=== PATIENT | female | born 1935 | race Caucasian/White ===

== ENCOUNTER 2020-08-14 15:19 | Inpatient (IN) | payer OTHER ==
[2020-08-14 16:13] LABS: Absolute Lymphocytes (CBC) 1.6 K/uL (0.7-4.9); Basophils % 1.2 % (0-1.3); Hematocrit 32.6 % (36.0-45.0); Lymphocytes % 27.4 % (15.3-44.8); MPV 7.9 fL (7.6-11.3); RBC Red Blood Cell Count 3.57 M/uL (3.86-4.86)
[2020-08-14 16:16] LABS: Protime INR 1.14
[2020-08-14 16:28] LABS: ALT/SGPT 16 U/L (12-78); AST/SGOT 15 U/L (15-37); Albumin 2.8 g/dL (3.4-5.0); Alkaline Phosphatase 100 U/L (45-117); BUN Blood Urea Nitrogen 10 mg/dL (7-18); Bicarbonate 30 mmol/L (21-32); Bilirubin Direct 0.2 mg/dL (0-0.2); Bilirubin Total 0.6 mg/dL (0.2-1.0); Glucose Level 96 mg/dL (74-106); Magnesium 2.4 mg/dL (1.8-2.4); Potassium 3.6 mmol/L (3.5-5.1); Protein, Total 7.6 g/dL (6.4-8.2); Sodium Level 137 mmol/L (136-145); Troponin (Emerg Dept Use Only) < 0.02 ng/mL (0.0-0.045)
--- NOTE | 2020-08-14 16:28 | RAD REPORT ---
EXAM DESCRIPTION: RAD - Chest Single View - 08/14/2020 4:15 pm CLINICAL HISTORY: left leg swelling Chest pain. COMPARISON: No comparisons FINDINGS: Portable technique limits examination quality. The lungs are grossly clear. The heart is normal in size. No displaced fractures. IMPRESSION: No acute intrathoracic process suspected.
--- NOTE | 2020-08-14 16:46 | EDPHYS ---
Physician Documentation [facility] Name: Loni Braga Age: 84 yrs Sex: Female : 1935 Arrival Date: 08/14/2020 Time: 15:21 Bed 14 Private MD: ED Physician Kyler Ashley HPI: 08/14 15:40 This 84 yrs old Female presents to ER via Wheelchair with complaints of Blood cp Clot in Leg. 15:40 The patient presents with pain, that is acute, swelling, tenderness. cp 15:40 The complaints affect the left leg. Patient reports having US of left leg today done by cp radiology of [facility] that showed DVT. Historical: - Allergies: 15:35 Codeine; ll1 15:35 Morphine; ll1 - PMHx: 15:35 Glaucoma; left foot fx; ll1 - Immunization history:: Flu vaccine status is unknown. - Social history:: Smoking status: Patient denies any tobacco usage or history of. ROS: 15:45 Constitutional: Negative for body aches, chills, fever, poor PO intake. cp 15:45 Eyes: Negative for injury, pain, redness, and discharge. cp 15:45 MS/extremity: Positive for pain, swelling, tenderness, of the left leg, Negative for cp decreased range of motion. 15:45 Cardiovascular: Negative for chest pain, palpitations. cp 15:45 Respiratory: Negative for cough, shortness of breath, wheezing. 15:45 Abdomen/GI: Negative for abdominal pain, nausea, vomiting, and diarrhea. 15:45 Neuro: Negative for altered mental status, headache, syncope, weakness. 15:45 All other systems are negative. Exam: 15:50 Constitutional: The patient appears in no acute distress, alert, awake, cp non-diaphoretic, non-toxic, well developed, well nourished. 15:50 Head/Face: Normocephalic, atraumatic. cp 15:50 Eyes: Periorbital structures: appear normal, Conjunctiva: normal, no exudate, no injection, Lids and lashes: appear normal, bilaterally. 15:50 Chest/axilla: Inspection: normal, Palpation: is normal, no crepitus, no tenderness. 15:50 Cardiovascular: Rate: normal, Rhythm: regular, JVD: is not appreciated. 15:50 Respiratory: the patient does not display signs of respiratory distress, Respirations: normal, no use of accessory muscles, no retractions, labored breathing, is not present, Breath sounds: are clear throughout, no decreased breath sounds. 15:50 Abdomen/GI: Inspection: abdomen appears normal, Palpation: abdomen is soft and non-tender, in all quadrants. 15:50 Musculoskeletal/extremity: Extremities: grossly normal except: noted in the left leg: swelling, tenderness, Perfusion: the extremity is normally perfused throughout, the left leg Sensation intact. DVT Exam: no erythema, no increased warmth, pain, that is mild, of the left leg, swelling, that is moderate, of the left leg, tenderness, that is mild, of the left leg. 15:50 Skin: no rash present. 16:09 ECG was reviewed by the Attending Physician. cp Vital Signs: 15:34 BP 137 / 92; Pulse 72; Resp 17; Temp 97.5; Pulse Ox 98% ; Pain 3/10; ll1 16:15 BP 117 / 62; Pulse 67; Resp 15; Pulse Ox 100% on R/A; sv 16:46 Weight 54.43 kg; sv MDM: 15:29 Patient medically screened. cp 16:00 Differential diagnosis: cellulitis, DVT, dependent edema. cp 16:42 Data reviewed: vital signs, nurses notes, lab test result(s), EKG, radiologic studies, cp plain films, ultrasound, I have discussed the patient's presentation/case with the attending Emergency Department Physician; and as a result, I will admit patient. Physician consultation: Dorina Victoria MD was called at 16:44, was contacted at 16:44, regarding admission, to the telemetry unit. 08/14 15:36 Order name: Basic Metabolic Panel; Complete Time: 16:39 cp 08/14 15:36 Order name: CBC with Diff; Complete Time: 16:39 cp 08/14 15:36 Order name: LFT's; Complete Time: 16:39 cp 08/14 15:36 Order name: Magnesium; Complete Time: 16:39 cp 08/14 15:36 Order name: PT-INR; Complete Time: 16:39 cp 08/14 15:36 Order name: Troponin (emerg Dept Use Only); Complete Time: 16:39 cp 08/14 17:24 Order name: CBC with Automated Diff EDMS 08/14 17:24 Order name: CBC with Automated Diff EDMS 08/14 17:24 Order name: Comprehensive Metabolic Panel EDMS 08/14 17:24 Order name: Comprehensive Metabolic Panel EDMS 08/14 17:24 Order name: Protime (+INR) EDMS 08/14 17:24 Order name: Protime (+INR) EDMS 08/14 17:24 Order name: PTT, Activated Partial Thromb EDMS 08/14 17:24 Order name: PTT, Activated Partial Thromb EDMS 08/14 15:36 Order name: XRAY Chest (1 view); Complete Time: 16:39 cp 08/14 15:36 Order name: EKG; Complete Time: 15:37 cp 08/14 15:36 Order name: Cardiac monitoring; Complete Time: 16:05 cp 08/14 15:36 Order name: EKG - Nurse/Tech; Complete Time: 16:05 cp 08/14 15:36 Order name: IV Saline Lock; Complete Time: 16:09 cp 08/14 15:36 Order name: Labs collected and sent; Complete Time: 16:09 cp 08/14 15:36 Order name: O2 Per Protocol; Complete Time: 16:09 cp 08/14 15:36 Order name: O2 Sat Monitoring; Complete Time: 16:09 cp 08/14 17:11 Order name: Diet Regular; Complete Time: 17:11 sv 08/14 17:24 Order name: CONS Pharmacy Consult EDMS EC:09 Rate is 68 beats/min. Rhythm is regular. WI interval is normal. QRS interval is normal. cp QT interval is normal. T waves are Inverted in lead aVR. Interpreted by me. Reviewed by me. Administered Medications: 17:12 Drug: Lovenox 1 mg/kg Route: Sub-Q; Site: right lower abdomen; sv 17:42 Follow up: Response: No adverse reaction sv Disposition: 08/15 08:04 Co-signature as Attending Physician, Kyler Ashley MD. rn Disposition: 08/14/20 16:45 Hospitalization ordered by Dorina Victoria for Inpatient Admission. Preliminary diagnosis is Acute embolism and thrombosis of deep veins of left upper extremity. - Bed requested for Telemetry/MedSurg (Inpatient). - Status is Inpatient Admission. sg - Condition is Stable. - Problem is new. - Symptoms have improved. Signatures: Dispatcher [employer] EDMS Dirrim, Thelma Freda Rodas, RN RN sv Dony Lauren RN RN sg Kyler Ashley MD MD rn Page, Corey, PA PA cp Lewis, Lynsay, RN RN ll1 Corrections: (The following items were deleted from the chart) 08/14 18:11 16:45 Hospitalization Ordered by Dorina Victoria MD for Inpatient Admission. Preliminary bd diagnosis is Acute embolism and thrombosis of deep veins of left upper extremity. Bed requested for Telemetry/MedSurg (Inpatient). Status is Inpatient Admission. Condition is Stable. Problem is new. Symptoms have improved. cp 19:44 18:11 08/14/2020 16:45 Hospitalization Ordered by Dorina Victoria MD for Inpatient sg Admission. Preliminary diagnosis is Acute embolism and thrombosis of deep veins of left upper extremity. Bed requested for Telemetry/MedSurg (Inpatient). Status is Inpatient Admission. Condition is Stable. Problem is new. Symptoms have improved. bd
--- NOTE | 2020-08-14 16:46 | ER ---
Nurse's Notes [facility] Name: Loni Braga Age: 84 yrs Sex: Female : 1935 Arrival Date: 08/14/2020 Time: 15:21 Bed 14 Private MD: Diagnosis: Acute embolism and thrombosis of deep veins of left upper extremity Presentation: 08/14 15:34 Chief complaint: Patient states: Sent over after outpatient ultrasound. LLE blood clot ll1 found. No SOB or CP. Coronavirus screen: Client denies travel out of the [place] in the last 14 days. At this time, the client does not indicate any symptoms associated with coronavirus-19. Ebola Screen: Patient denies travel to an Ebola-affected area in the 21 days before illness onset. Initial Sepsis Screen: Does the patient meet any 2 criteria? No. Patient's initial sepsis screen is negative. Risk Assessment: Do you want to hurt yourself or someone else? Patient reports no desire to harm self or others. Onset of symptoms was August 08, 2020. 15:34 Method Of Arrival: Wheelchair ll1 15:34 Acuity: PRISCILLA 3 ll1 16:05 Initial Sepsis Screen: Does the patient have a suspected source of infection? No. sv Patient's initial sepsis screen is negative. Historical: - Allergies: 15:35 Codeine; ll1 15:35 Morphine; ll1 - PMHx: 15:35 Glaucoma; left foot fx; ll1 - Immunization history:: Flu vaccine status is unknown. - Social history:: Smoking status: Patient denies any tobacco usage or history of. Screenin:35 Abuse screen: Denies threats or abuse. Denies injuries from another. Nutritional sv screening: No deficits noted. Tuberculosis screening: No symptoms or risk factors identified. 15:40 Fall Risk None identified. sv Assessment: 15:40 General: Appears in no apparent distress. comfortable, slender, Behavior is calm, sv cooperative, appropriate for age. Pain: Complains of pain in left leg Pain currently is 3 out of 10 on a pain scale. Neuro: Level of Consciousness is awake, alert, obeys commands, Oriented to person, place, time, situation, Moves all extremities. Full function. Respiratory: Airway is patent Respiratory effort is even, unlabored, Respiratory pattern is regular, symmetrical, Denies shortness of breath. Derm: Skin is thin, with poor turgor Skin is normal. Musculoskeletal: Range of motion: intact in all extremities, Pt has a walking boot on her left foot, pt has a fracture to the left foot that occurred about 6 weeks ago. Reports increasing swelling to the left foot. 17:00 Reassessment: Patient appears in no apparent distress at this time. No changes from sv previously documented assessment. Patient and/or family updated on plan of care and expected duration. Pain level reassessed. Patient is alert, oriented x 3, equal unlabored respirations, skin warm/dry/pink. 18:00 Reassessment: Patient appears in no apparent distress at this time. No changes from sv previously documented assessment. Patient and/or family updated on plan of care and expected duration. Pain level reassessed. Patient is alert, oriented x 3, equal unlabored respirations, skin warm/dry/pink. 18:22 Reassessment: Attempted to call report, pt to go up after shift change. sv 19:08 Reassessment: awaiting to give report at this time, pt family at bedside at this time. sg Vital Signs: 15:34 BP 137 / 92; Pulse 72; Resp 17; Temp 97.5; Pulse Ox 98% ; Pain 3/10; ll1 16:15 BP 117 / 62; Pulse 67; Resp 15; Pulse Ox 100% on R/A; sv 16:46 Weight 54.43 kg; sv ED Course: 15:21 Patient arrived in ED. ds1 15:27 Randy Mera PA is PHCP. cp 15:27 Kyler Ashley MD is Attending Physician. cp 15:30 Freda Arguelles, BRAD is Primary Nurse. sv 15:34 Arm band placed on. sv 15:35 Triage completed. ll1 15:35 Patient has correct armband on for positive identification. Bed in low position. Call sv light in reach. Side rails up X2. Adult w/ patient. 15:45 Missed attempt(s): 22 gauge in right forearm. Bleeding controlled, band aid applied, sv catheter tip intact. 15:50 Inserted saline lock: 20 gauge in left antecubital area, using aseptic technique. Blood sv collected. Flushed left antecubital with 5 ml normal saline. 16:05 EKG done, by ED staff, reviewed by Randy MCDOWELL. dh3 16:05 X-ray(s) taken. sv 16:14 XRAY Chest (1 view) Sent. sv 16:15 XRAY Chest (1 view) In Process Unspecified. EDMS 16:18 Awaiting lab results, Awaiting radiology results. sv 16:44 Dorina Victoria MD is Hospitalizing Provider. cp 19:00 Primary Nurse role handed off by Freda Arguelles RN 19:00 Report given to Dony SALINAS. sv 19:06 Dony Lauren, BRAD is Primary Nurse. sg Administered Medications: 17:12 Drug: Lovenox 1 mg/kg Route: Sub-Q; Site: right lower abdomen; sv 17:42 Follow up: Response: No adverse reaction sv Outcome: 16:45 Decision to Hospitalize by Provider. cp 19:44 Admitted to Med/surg accompanied by nurse, via stretcher, room 408, with chart, Report sg called to BRAD Goodson 19:44 Condition: stable 19:44 Instructed on the need for admit, safety practices, Demonstrated understanding of instructions. 19:44 Patient left the ED. sg Signatures: Dispatcher [employer] EDAK Freda Arguelles RN RN Dony Lauren, BRAD RN Miroslava Stevens ds1 Randy Mera PA PA Damaris Ambriz [facility] [place] RN RN ll1 Corrections: (The following items were deleted from the chart) 16:15 13:50 Inserted saline lock: 20 gauge in left antecubital area, using aseptic technique. sv Blood collected. Flushed left antecubital with 5 ml normal saline sv 16:15 13:45 Missed attempt(s): 22 gauge in right forearm. Bleeding controlled, band aid sv applied, catheter tip intact. sv 16:18 15:40 Musculoskeletal: Range of motion: intact in all extremities, Pt has a walking sv boot on her left foot, pt has a fracture to the left foot that occurred about 6 weeks ago. sv
[2020-08-14] MEDS ORDERED: ENOXAPARIN 60 MG/0.6 ML SQ ONE (17:08)
[2020-08-14] MEDS ORDERED: MORPHINE 2 MG/ML SYR IV PRN (17:20)
[2020-08-14] MEDS ORDERED: ACETAMINOPHEN 500 MG TAB PO PRN (17:20)
[2020-08-14] MEDS ORDERED: ONDANSETRON 4 MG/2 ML VIAL IV PRN (17:20)
[2020-08-14] MEDS: NA CHLORIDE 0.9% 1,000 ML IV SCH (20:44)
[2020-08-14] MEDS ORDERED: ENOXAPARIN 60 MG/0.6 ML SQ SCH (21:00)
[2020-08-14 21:24] VITALS: BMI 21.2
[2020-08-15 04:08] LABS: Absolute Lymphocytes (CBC) 1.5 K/uL (0.7-4.9); Hematocrit 30.5 % (36.0-45.0); Lymphocytes % 27.8 % (15.3-44.8); MPV 7.9 fL (7.6-11.3); RBC Red Blood Cell Count 3.37 M/uL (3.86-4.86)
[2020-08-15 04:09] LABS: Protime INR 1.11
[2020-08-15 04:23] LABS: Albumin 2.3 g/dL (3.4-5.0); Bilirubin Total 0.4 mg/dL (0.2-1.0); Potassium 3.7 mmol/L (3.5-5.1); Protein, Total 6.7 g/dL (6.4-8.2)
[2020-08-15] MEDS: ENOXAPARIN 60 MG/0.6 ML SQ SCH ×2 (04:24→16:01)
[2020-08-15] MEDS ORDERED: APIXABAN 5 MG TABLET PO SCH (06:00)
[2020-08-15] MEDS ORDERED: INFLUENZA VACCINE (for 3y+) 0.5 ML DOSE IMVAC ONE (08:00)
[2020-08-15] MEDS: NA CHLORIDE 0.9% 1,000 ML IV SCH ×2 (08:06→20:13)
--- NOTE | 2020-08-15 09:01 | P.HP ---
Certification for Inpatient Patient admitted to: Inpatient With expected LOS: >2 Midnights Patient will require the following post-hospital care: None Practitioner: I am a practitioner with admitting privileges, knowledge of patient current condition, hospital course, and medical plan of care. Services: Services provided to patient in accordance with Admission requirements found in Title 42 Section 412.3 of the Code of Federal Regulations Patient History Date of Service: 08/14/20 Reason for admission: Left lower extremity DVTs History of Present Illness: Patient is an 84-year-old female came to the hospital with a large DVT in the left lower extremity which extended from the left femoral vein down to the left posterior tibial vein. Patient has been having pain for the last week. She has been having phlebitis type symptoms which have been progressively worsening. Patient recently had a left ankle fracture about 4 weeks ago, and had repair done but by Podiatry and had a boot placed on the left foot. Patient has been nonweightbearing on that left leg. Patient was not on any DVT prophylaxis per the family members. Patient has not been doing nearly as much she used to prior to the injury. Before this she was very active. She started having pain in her left leg a week ago. It hurts from her left thigh down to the tapia. It kept g etting worse so she came into the podiatry office for further evaluation. They advised her to go get ultrasound of her leg. The ultrasound revealed extensive DVT as mentioned above. Patient was sent to the emergency room. We were notified of her current situation and decision was made because of the extent of the DVT to admit her to the hospital. The family has a lot of questions and are worried that this could prevent her recovery from the left ankle fracture. Will continue on Lovenox for now. As long as she is not having any bleeding issues we will go ahead and change her to a oral Eliquis. Hopefully we can discharge her over the next 48-72 hr. Patient also has history of breast cancer but she is not on any SERM, and the family does not think she has ever been on anything like tamoxifen.. Allergies codeine Allergy (Verified 08/14/20 20:29) Nausea/Vomiting Home Medications: Aspirin [Aspirin EC 81 MG] 81 mg PO DAILY 08/15/20 Brimonidine Tartrate/Timolol [Combigan 0.2%-0.5% Eye Drops] 1 drop EACH EYE Q12H 08/15/20 Latanoprost/Pf [Latanoprost 0.005% Eye Drop] 1 drop EACH EYE BEDTIME 08/15/20 - Past Medical/Surgical History Has patient received pneumonia vaccine in the past: Yes Diabetic: No -: glaucoma -: left foot fracture -: right breast CA -: tonsillectomy -: appendectomy -: hysterectomy -: right knee surgery -: s/p right hemiarthroplasty 02/27/17 -: cataract surgery -: right lumpectomy- one chemo/radiation - Family History Father Family History: Reviewed- Non-Contributory - Social History Smoking Status: Former smoker Alcohol use: No CD- Drugs: No Caffeine use: Yes Place of Residence: Home Review of Systems 10-point ROS is otherwise unremarkable Physical Examination - Vital Signs Temperature: 98.3 F Blood Pressure: 118/56 Pulse: 77 Respirations: 18 Pulse Ox (%): 97 - Physical Exam General: Alert, In no apparent distress, Oriented x3 HEENT: Atraumatic, PERRLA, Mucous membr. moist/pink, EOMI, Sclerae nonicteric Neck: Supple, 2+ carotid pulse no bruit, No LAD, Without JVD or thyroid abnormality Respiratory: Clear to auscultation bilaterally, Normal air movement Cardiovascular: Regular rate/rhythm, Normal S1 S2, No murmurs Gastrointestinal: Normal bowel sounds, Soft and benign, Non-distended, No tenderness Musculoskeletal: No clubbing, No swelling, No tenderness Integumentary: No rashes Neurological: Normal gait, Normal speech, Normal strength at 5/5 x4 extr, Normal tone, Sensation intact, Cranial nerves 3-12 intact, Normal affect Lymphatics: No axilla or inguinal lymphadenopathy - Studies Laboratory Data (last 24 hrs) 08/14/20 15:50: PT 13.4 H, INR 1.14 08/14/20 15:50: WBC 5.7, Hgb 11.2 L, Hct 32.6 L, Plt Count 450 H 08/14/20 15:50: Sodium 137, Potassium 3.6, BUN 10, Creatinine 1.09, Glucose 96, Magnesium 2.4, Total Bilirubin 0.6, AST 15, ALT 16, Alkaline Phosphatase 100 Assessment & Plan - Problems (Diagnosis) (1) Status post ORIF of fracture of ankle Current Visit: Yes Status: Acute (2) DVT (deep venous thrombosis) Current Visit: Yes Status: Acute (3) Phlebitis and thrombophlebitis Current Visit: Yes Status: Acute (4) H/O malignant neoplasm of breast Current Visit: Yes Status: Acute - Plan Plan: 1. Continue with IV Lovenox 2. Anti-inflammatory for thrombophlebitis 3. Pain control 4. Physical therapy evaluation 5. Hypercoagulable workup at this time is not necessary because she has been fairly immobile bile which probably led to the DVT in the left leg 6. Plan a started Eliquis in the morning at 10 mg p.o. b.i.d. and then 5 mg twice a day. She will need to be on this for at least 6 months. Talked her about doing anything can increase her risk of bleeding while she is on the blood thinner. 7. Monitor hemodynamics and H&H 8. GI and DVT prophylaxis Discharge Plan: Home Plan to discharge in: Greater than 2 days - Advance Directives Does patient have a Living Will: No Does patient have a Durable POA for Healthcare: No - Code Status/Comfort Care Code Status Assessed: Yes Code Status: Full Code Critical Care: No Time Spent Managing PTS Care (In Minutes): 45
[2020-08-15] MEDS: Brimonidine Tartrate/Timolol [Combigan 0.2%-0.5% Eye Drops] OPTH SCH ×2 (09:15→19:33)
[2020-08-16] MEDS: ENOXAPARIN 60 MG/0.6 ML SQ SCH (05:12)
--- NOTE | 2020-08-16 06:00 | EKG ---
Test Date: 2020-08-14 Test Time: 16:05:18 Brake Coupler Dinkey: OSCAR MEASUREMENT RESULTS: Intervals: Rate: 68 SC: 156 QRSD: 92 QT: 408 QTc: 433 Claridge: P: 60 SC: 156 QRS: -23 T: 39 INTERPRETIVE STATEMENTS: Normal sinus rhythm Possible Left atrial enlargement Low voltage QRS Incomplete right bundle branch block Borderline ECG No previous ECG available for comparison Electronically Signed On 08-16-20 05:56:16 CDT by Xavi Jamison
[2020-08-16 07:43] VITALS: O2SAT 95
[2020-08-16] MEDS: NA CHLORIDE 0.9% 1,000 ML IV SCH (07:43)
[2020-08-16] MEDS: Brimonidine Tartrate/Timolol [Combigan 0.2%-0.5% Eye Drops] OPTH SCH (07:44)
--- NOTE | 2020-08-16 08:17 | P.PN ---
Subjective Date of Service: 08/15/20 Patient still having some left lower extremity pain. Most likely phlebitis. Will give her IV steroids X1. Continue physical therapy. Anticipate discharge home tomorrow morning if she remains stable. Review of Systems 10-point ROS is otherwise unremarkable Physical Examination - Vital Signs Temperature: 98.5 F Blood Pressure: 116/50 Pulse: 76 Respirations: 18 Pulse Ox (%): 95 - Physical Exam General: Alert, In no apparent distress, Oriented x3 HEENT: Atraumatic, PERRLA, EOMI Neck: Supple, JVD not distended Respiratory: Clear to auscultation bilaterally, Normal air movement Cardiovascular: Regular rate/rhythm, Normal S1 S2, No murmurs Gastrointestinal: Normal bowel sounds, Soft and benign, Non-distended, No tenderness Musculoskeletal: Tenderness (Tenderness to the left thigh; pain on movement of the left leg) Integumentary: No rashes Neurological: Normal tone, Sensation intact, Cranial nerves 3-12 intact, Abnormal strength Lymphatics: No axilla or inguinal lymphadenopathy - Studies Medications List Reviewed: Yes Assessment & Plan - Problems (Diagnosis) (1) Status post ORIF of fracture of ankle Current Visit: Yes Status: Acute (2) DVT (deep venous thrombosis) Current Visit: Yes Status: Acute (3) Phlebitis and thrombophlebitis Current Visit: Yes Status: Acute (4) H/O malignant neoplasm of breast Current Visit: Yes Status: Acute - Plan Plan: Continue with plan of care as mentioned below 1. Continue with IV Lovenox today; start Eliquis in the morning. 2. Anti-inflammatory for thrombophlebitis 3. Pain control 4. Physical therapy evaluation 5. Hypercoagulable workup at this time is not necessary because she has been fairly immobile bile which probably led to the DVT in the left leg 6. Plan a started Eliquis in the morning at 10 mg p.o. b.i.d. and then 5 mg twice a day. She will need to be on this for at least 6 months. Talked her about doing anything can increase her risk of bleeding while she is on the blood thinner. 7. Monitor hemodynamics and H&H 8. GI and DVT prophylaxis Discharge Plan: Home Plan to discharge in: Greater than 2 days - Advance Directives Does patient have a Living Will: No Does patient have a Durable POA for Healthcare: No - Code Status/Comfort Care Code Status: Full Code Critical Care: No Time Spent Managing PTS Care (In Minutes): 35
--- NOTE | 2020-08-16 08:18 | P.DS ---
Discharge Date: 08/16/20 Disposition: ROUTINE DISCHARGE Discharge Condition: GOOD Reason for Admission: Left lower extremity DVTs - Problems (1) Status post ORIF of fracture of ankle Status: Acute (2) DVT (deep venous thrombosis) Status: Acute (3) Phlebitis and thrombophlebitis Status: Acute (4) H/O malignant neoplasm of breast Status: Acute Brief History of Present Illness: Patient is an 84-year-old female came to the hospital with a large DVT in the left lower extremity which extended from the left femoral vein down to the left posterior tibial vein. Patient has been having pain for the last week. She has been having phlebitis type symptoms which have been progressively worsening. Patient recently had a left ankle fracture about 4 weeks ago, and had repair done but by Podiatry and had a boot placed on the left foot. Patient has been nonweightbearing on that left leg. Patient was not on any DVT prophylaxis per the family members. Patient has not been doing nearly as much she used to prior to the injury. Before this she was very active. She started having pain in her left leg a week ago. It hurts from her left thigh down to the tapia. It kept getting worse so she came into the podiatry office for further evaluation. They advised her to go get ultrasound of her leg. The ultrasound revealed extensive DVT as mentioned above. Patient was sent to the emergency room. We were notified of her current situation and decision was made because of the extent of the DVT to admit her to the hospital. The family has a lot of questions and are worried that this could prevent her recovery from the left ankle fracture. Will continue on Lovenox for now. As long as she is not having any bleeding issues we will go ahead and change her to a oral Eliquis. Hopefully we can discharge her over the next 48-72 hr. Patient also has history of breast cancer but she is not on any SERM, and the family does not think she has ever been on anything like tamoxifen.. Hospital Course: Patient was given anti coagulation. clerical and office support workers gave patient a card for Eliquis. We also did a prior authorization for Eliquis. Hopefully this will get approved that patient needs this. In the meantime, she will have a car to get the Eliquis filled. If she has any problem I have given them my cell phone number to contact me immediately. At this time, patient is stable for discharge home. Vital Signs/Physical Exam: Temp Pulse Resp BP Pulse Ox 98.5 F 76 18 116/50 L 95 08/16/20 08:16 08/16/20 08:16 08/16/20 08:16 08/16/20 08:16 08/16/20 08:16 General: Alert, In no apparent distress, Oriented x3 Laboratory Data at Discharge: WBC 5.5 K/uL (4.3-10.9) 08/15/20 03:25 Hgb 10.5 g/dL (12.0-15.0) L 08/15/20 03:25 Hct 30.5 % (36.0-45.0) L 08/15/20 03:25 Plt Count 389 K/uL (152-406) 08/15/20 03:25 PT 13.1 SECONDS (9.5-12.5) H 08/15/20 03:25 INR 1.11 08/15/20 03:25 APTT 31.7 SECONDS (24.3-36.9) 08/15/20 03:25 Sodium 138 mmol/L (136-145) 08/15/20 03:25 Potassium 3.7 mmol/L (3.5-5.1) 08/15/20 03:25 BUN 8 mg/dL (7-18) 08/15/20 03:25 Creatinine 0.75 mg/dL (0.55-1.3) 08/15/20 03:25 Glucose 81 mg/dL (74-106) 08/15/20 03:25 Magnesium 2.4 mg/dL (1.8-2.4) 08/14/20 15:50 Total Bilirubin 0.4 mg/dL (0.2-1.0) 08/15/20 03:25 AST 13 U/L (15-37) L 08/15/20 03:25 ALT 11 U/L (12-78) L 08/15/20 03:25 Alkaline Phosphatase 90 U/L (45-117) 08/15/20 03:25 Home Medications: Brimonidine Tartrate/Timolol [Combigan 0.2%-0.5% Eye Drops] 1 drop EACH EYE Q12H 08/15/20 Latanoprost/Pf [Latanoprost 0.005% Eye Drop] 1 drop EACH EYE BEDTIME 08/15/20 Apixaban [Eliquis] 5 mg PO BID #60 tablet 08/16/20 Aspirin [Aspirin EC 81 MG] 81 mg PO DAILY #30 08/16/20 Enoxaparin Sodium [Lovenox 60 MG INJ] 60 mg SQ Q12H #10 syr 08/17/20 New Medications: Aspirin [Aspirin EC 81 MG] 81 mg PO DAILY #30 Apixaban [Eliquis] 5 mg PO BID #60 tablet Enoxaparin Sodium [Lovenox 60 MG INJ] 60 mg SQ Q12H #10 syr Patient Discharge Instructions: OK TO DC IV AND DC HOME. FOLLOW-UP WITH PRIMARY CARE PROVIDER IN 1-2 WEEKS. FOLLOW-UP WITH [facility] IN 1-2 WEEKS. RETURN TO THE ER IF symptoms worsen. CALL or TEXT DR. SHEPPARD AT [phone] IF ANY QUESTIONS REGARDING HOSPITAL STAY. PLEASE CALL THE FLOOR AT [phone] IF ANY MEDICATION OR NURSING QUESTIONS. Diet: Regular Activity: Fall precautions Time spent managing pt's care (in minutes): 35
[2020-08-16 12:09] VITALS: BP 100/53; TEMP 98.8
[2020-08-16] MEDS ORDERED: APIXABAN 5 MG TABLET PO SCH (17:00)
--- OUTSIDE RECORDS SUMMARY | 2020-08-17 08:44 | XMS REPORT | Clinical Summary ---
:1935 Author Organization [facility] Address [address] [place] [address] Care Team Providers Name Role Phone Pavel Weeks MD Primary Care Provider Allergies Active Allergy Reactions Severity Noted Date Comments Codeine GI Intolerance 08/11/2016 Medications Medication Sig Dispensed Refills Start Date End Date Status EZETIMIBE (ZETIA ORAL) Take by mouth. 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/29/2016 Surgical History Surgery Date Site/Laterality Comments BREAST LUMPECTOMY HYSTERECTOMY KNEE ARTHROSCOPY CATARACT EXTRACTION Medical History Medical History Date Comments Breast cancer (HCC) right breast cancer Hyperlipidemia Social History Tobacco Use Types Packs/Day Years Used Date Former Smoker Smokeless Tobacco: Former User Q uit: 08/11/1982 Tobacco Cessation: Counseling Given: No Alcohol Use Drinks/Week oz/Week Comments No Sex Assigned at Date Recorded Not on file Last Filed Vital Signs Not on file Plan of Treatment Health Maintenance Due Date Last Done Comments SHINGLES VACCINES (#1) 1987 65+ PNEUMOCOCCAL VACCINE (1 of 1 - PPSV23) 2002 INFLUENZA VACCINE 06/10/2020 Results Not on fileafter 08/16/2019 Insurance Payer Benefit Plan / Subscriber ID Effective Dates Phone Addre ss Type Group MEDICARE MEDICARE PART A [id number] 2002-Present TAINA NARVAEZ Medicare AND B Advance Directives For more information, please contact: [phone] Type Date Recorded Patient Forestry Technician Explanati on Advance Directives, Living Will and Medical Power of Customer Experience Associate
--- OUTSIDE RECORDS SUMMARY | 2020-08-17 08:44 | XMS REPORT | Continuity of Care Document ---
:1935 Author Organization [facility] t Address [address] [place] [address] [address]. [address] [place] [address] Care Team Providers Name Role Phone Micky MENEZES, As Primary Care Physician Alexis MENEZES, Dorian Attending Clinician 3 Attending Clinician Unavailable Field-Hrt Attending Clinician Unavailable Payers Payer Name Policy Type Policy Number Effective Date Expiration Date S ource Problems Condition Condition Condition Status Onset Resolution Last Treating Co mments Source Name Details Category Date Date Treatment Clinician Date E-coli UTI E-coli UTI Disease Active 2015-11 [facility] [place] 0-03 [facility]: st 00 Neutropeni Neutropeni Disease Active 2015-11 [facility] c fever c fever 0-02 [facility] 00:00: st 00 Encounter Encounter Disease Active [place] st[facility] for for 08-05 [facility] antineopla antineopla 00:00: st stic stic 00 chemothera chemothera py py HER2-negat HER2-negat Disease Active [facility] scotty scotty 07-29 [facility] carcinoma carcinoma 00:00: st of right of right 00 breast breast Estrogen Estrogen Disease Active [place] receptor receptor 07-29 [facility] i positive positive 00:00: st 00 Allergies, Adverse Reactions, Alerts Allergy Allergy Status Severity Reaction(s) Onset Inactive Treating Comm ents Source Name Type Date Date Clinician Codeine Propensi Active GI 2015-11 [place] ty to Intolerance 0-02 Metho di adverse 00:00: st reaction 00 s to drug Statins- DA Active [facility] [place] [facility] codeine DA [facility] [place] hydrocod DA [facility] [place] acetamin DA [facility] [place] Social History Social Habit Start Date Stop Date Quantity Comments Source Sex Assigned At [facility] Tobacco use and 2016-12-31 2016-12-31 Former user [facility] exposure 00:00:00 00:00:00 Alcohol intake 2016-12-31 2016-12-31 Current [place] [facility] 00:00:00 00:00:00 non-drinker of alcohol (finding) History of 1982-08-11 User of smokeless [facility] tobacco use 00:00:00 tobacco Smoking Status Start Date Stop Date Source Former smoker 2016-12-31 00:00:00 2016-12-31 00:00:00 [facility] Medications Ordered Filled Start Stop Current Ordering Indication Dosage Frequency Signature Comments Components Source Medication Medication Date Date Medication? Clinician (SIG) Name Name EZETIMIBE Yes Take by Emi on (ZETIA 2-21 mouth. [facility] ORAL) 10:03: st 22 ondansetron Yes 1 po bid x [place] (ZOFRAN) 8 9-23 3 days, Method i MG tablet 00:00: begin the 00 day after chemo Procedures This patient has no known procedures. Plan of Care Planned Activity Planned Date Details Comments Source Future Scheduled 2020-06-10 INFLUENZA VACCINE [facility] 00:00:00 [code = INFLUENZA VACCINE] Future Scheduled 2002 65+ PNEUMOCOCCAL [facility] Test 00:00:00 VACCINE (1 of 1 - PPSV23) [code = 65+ PNEUMOCOCCAL VACCINE (1 of 1 - PPSV23)] Future Scheduled 1987 SHINGLES VACCINES (#1) [facility] Test 00:00:00 [code = SHINGLES VACCINES (#1)] Encounters Start End Encounter Admission Attending Care Care Encounter Source Date/Time Date/Time Type Type Clinicians Facility Department ID 2020-05-23 2020-05-23 Office Jessee Espinoza 1.2.8 [id number] 08:37:58 08:57:58 Visit 3, [facility] AMBULATOR [id number] Y [id number] 300 2019-12-07 2019-12-07 Office Jessee Espinoza 1.2.8 [id number] 08:39:26 09:19:26 Visit Field-Hrt, Visual AMBULATOR [id number] 1 Y [id number] 300 Results This patient has no known results.
== END 2020-08-16 12:50 | disposition home or self-care (01) | DRG 301 ==
LOC: ER 15:19 → ERHOLD 17:27 → 4TH 19:33
PROVIDERS: ADMIT Hospitalist; ATTEND Hospitalist
DX: I82.4Y2 Acute embolism and thrombosis of unspecified deep veins of left proximal lower extremity (principal); I82.4Z2 Acute embolism and thrombosis of unspecified deep veins of left distal lower extremity; Z88.5 Allergy status to narcotic agent; Z85.3 Personal history of malignant neoplasm of breast; Z79.82 Long term (current) use of aspirin; Z79.899 Other long term (current) drug therapy; Z90.49 Acquired absence of other specified parts of digestive tract; Z90.710 Acquired absence of both cervix and uterus; Z87.891 Personal history of nicotine dependence; Z79.01 Long term (current) use of anticoagulants; Z20.828 Contact with and (suspected) exposure to other viral communicable diseases
CPT/HCPCS: 36415; 71045; 80048; 80053; 80076; 83735; 84484; 85025; 85610; 85730; 90471; 93005; 93971; 96372; 99285; J1650; J7030; Q2035; U0002